=== PATIENT | female | born 1990 | race Caucasian/White ===

== ENCOUNTER 2018-11-07 10:26 | Observation (INO) | payer MEDICAID ==
[~2018-11-07] VITALS: Ht 147.3 cm; Wt 51.3 kg
[2018-11-07] MEDS ORDERED: PREN-55 MT (11:19)
== END 2018-11-07 13:10 | disposition home or self-care (01) ==
LOC: 8 EST LDRP 10:26
PROVIDERS: ADMIT Obstetrics & Gynecology; ATTEND Obstetrics & Gynecology
DX: O48.0 Post-term pregnancy (principal); Z3A.40 40 weeks gestation of pregnancy
CPT/HCPCS: 59025; 76805; 76818; G0378